=== PATIENT | male | born 1945 | race African-American/Black ===

== ENCOUNTER 2023-03-29 07:06 | Day surgery (SDC) | payer OTHER ==
[2023-03-27 10:55] VITALS: BMI 26.4
[2023-03-29] MEDS ORDERED: PROPOFOL 20 ML ONE ×2 (09:18→10:16)
== END 2023-03-29 11:24 | disposition home or self-care (01) ==
LOC: CSHSDC 07:06
PROVIDERS: ATTEND Internal Medicine Gastroenterology
PROC: 0DJD8ZZ Inspection of Lower Intestinal Tract, Via Natural or Artificial Opening Endoscopic (ICD-10-PCS; principal; 2023-03-29)
DX: Z12.11 Encounter for screening for malignant neoplasm of colon (principal); K57.30 Diverticulosis of large intestine without perforation or abscess without bleeding; K64.9 Unspecified hemorrhoids; I12.9 Hypertensive chronic kidney disease with stage 1 through stage 4 chronic kidney disease, or unspecified chronic kidney disease; N18.9 Chronic kidney disease, unspecified; G47.33 Obstructive sleep apnea (adult) (pediatric); N40.0 Benign prostatic hyperplasia without lower urinary tract symptoms; Z86.010 Personal history of colon polyps; Z79.899 Other long term (current) drug therapy
CPT/HCPCS: J2704